=== PATIENT | male | born 1960 | race African-American/Black ===

== ENCOUNTER 2024-02-04 07:35 | Day surgery (SDC) | payer MEDICAID ==
[~2024-02-04] VITALS: Ht 180.3 cm; Wt 107.5 kg
[2024-02-04] MEDS ORDERED: MEPERIDINE 100 MG INJ. 100 MG/ML VIAL ONE ×2 (10:09→12:52)
[2024-02-04] MEDS ORDERED: MIDAZOLAM HCL 5 MG/5 ML VIAL ONE ×3 (10:09→12:53)
[2024-02-04] MEDS ORDERED: DIPHENHYDRAMINE INJ 50 MG/ML VIAL ONE (12:52)
[2024-02-04 14:50] VITALS: O2SAT 98
[2024-02-04 16:44] VITALS: BP_SYST 169; PULSE 87; RESP 24
== END 2024-02-04 14:14 | disposition home or self-care (01) ==
LOC: SGI 07:35 → SMU 07:38 → SGI 14:14
PROVIDERS: ATTEND Internal Medicine Gastroenterology
DX: D64.9 Anemia, unspecified (principal); D12.3 Benign neoplasm of transverse colon; K31.89 Other diseases of stomach and duodenum; K70.30 Alcoholic cirrhosis of liver without ascites; K57.30 Diverticulosis of large intestine without perforation or abscess without bleeding; K64.8 Other hemorrhoids; K44.9 Diaphragmatic hernia without obstruction or gangrene; I10 Essential (primary) hypertension; E11.9 Type 2 diabetes mellitus without complications; E78.00 Pure hypercholesterolemia, unspecified; K21.9 Gastro-esophageal reflux disease without esophagitis; I25.2 Old myocardial infarction; M19.90 Unspecified osteoarthritis, unspecified site; F17.200 Nicotine dependence, unspecified, uncomplicated; Z79.899 Other long term (current) drug therapy; Z86.010 Personal history of colon polyps
CPT/HCPCS: 43239; 45385; 88305; 88313; 99152; G0378; J1200; J2250; J2175; 45384; 88312